=== PATIENT | male | born 1950 | race Caucasian/White ===

== ENCOUNTER → 2019-04-27 | Outpatient (CLI) | payer OTHER ==
--- NOTE | 2019-04-27 13:45 | NM ---
EXAMINATION TYPE: NM bone scan whole body DATE OF EXAM: 04/27/2019 COMPARISON: NONE HISTORY: Abnormal findings R93.89 per order. Right hip pain for 7 months per patient. Delayed whole-body scanning was performed following the injection of 24.7 mCi Tc 99m MDP. Images acq uired 3 hours post injection. FINDINGS: No suspicious increased radiotracer uptake to suggest metastatic disease to the bone or other suspici ous abnormality. No suspicious focal increased uptake at level of right hip. Degenerative change bilateral knees is present. Focal increased uptake right foot felt to correspond to degenerative change related to bunion or first metatarsophalangeal joint. Correlate clinically. IMPRESSION: As above.
== END | disposition home or self-care (01) ==
LOC: RADNMMAIN 09:38
DX: M17.0 Bilateral primary osteoarthritis of knee (principal)
CPT/HCPCS: 78306; A9503

== ENCOUNTER → 2019-12-30 | Outpatient (CLI) | payer OTHER ==
[2019-12-30 20:44] LABS: Prolactin 6.4 ng/mL (2.1-17.7); T4, Free (Free Thyroxine) 1.1 ng/dL (0.80-1.80)
[2019-12-31 02:52] LABS: ACTH 15.6 pg/mL (0.00-45.99)
== END | disposition home or self-care (01) ==
LOC: LABWHC1 11:38
PROVIDERS: ATTEND Internal Medicine Endocrinology, Diabetes & Metabolism
DX: D35.2 Benign neoplasm of pituitary gland (principal)
CPT/HCPCS: 36415; 82024; 82533; 84146; 84305; 84403; 84439; 84443; 84480

== ENCOUNTER → 2021-03-05 | Outpatient (CLI) | payer OTHER ==
[2021-03-05 20:49] LABS: HCT 47.5 % (39.6-50.0); HGB 15.6 g/dL (13.0-17.0); MCH 29.2 pg (27.0-32.0); MCHC 32.8 g/dL (32.0-37.0); Mean Platelet Volume 11.2 fL (9.5-12.2); Platelet Count 226 X 10*3/uL (140-440); RBC 5.34 X 10*6/uL (4.40-5.60); RDW 13.3 % (11.5-14.5); WBC 7.39 X 10*3/uL (4.50-10.00)
[2021-03-06 02:04] LABS: Prolactin 12.5 ng/mL (2.1-17.7)
== END | disposition home or self-care (01) ==
LOC: LABWHC1 14:51
PROVIDERS: ATTEND Internal Medicine Endocrinology, Diabetes & Metabolism
DX: D35.2 Benign neoplasm of pituitary gland (principal); E29.1 Testicular hypofunction
CPT/HCPCS: 36415; 84146; 84153; 84403; 85027

== ENCOUNTER 2021-05-03 09:27 | Emergency (ER) | payer OTHER ==
[2021-05-03] MEDS ORDERED: LIDOCAINE 1% INJ 10MG/ML (20 ML MDV) SQ ONE (10:53)
--- NOTE | 2021-05-03 11:01 | ED ---
General Adult HPI - General Chief complaint: Wound/Laceration Stated complaint: Finger injury, laceration Time Seen by Provider: 05/03/21 10:49 Source: patient Mode of arrival: ambulatory Limitations: no limitations - History of Present Illness Initial comments: Dictation was produced using [employer] dictation software. please excuse any grammatical, word or spelling errors. Chief Complaint: 70-year-old male presents with left second digit injury History of Present Illness: Patient is 70-year-old male who presents to the emergency department for left second digit injury. Patient states that around 8:30 AM he was using his table saw. A piece of wood kicked back and struck him on the distal portion of the left second digit. He noticed some bleeding. He states that it appears that the nail came off of the finger. Patient has past medical history of hypertension and dyslipidemia. He takes medications for this. Denies any numbness and paresthesias to the finger. Patient states that his last tetanus was approximately 10 years ago. Patient has no other complaints. He has pain to the digit. The ROS documented in this emergency department record has been reviewed and confirmed by me. Those systems with pertinent positive or negative responses have been documented in the HPI. All other systems are other negative and/or noncontributory. PHYSICAL EXAM: General Impression: Alert and oriented x3, not in acute distress HEENT: Normocephalic atraumatic, extra-ocular movements intact, pupils equal and reactive to light bilaterally, mucous membranes moist. Chest: Able to complete full sentences, no retractions, no tachypnea Neurological: CN II-XII grossly intact, no focal motor or sensory deficits noted Psych: Normal affect and mood Left hand: There appears to be a nail avulsion injury with bleeding arising from the lateral portion of the nailbed and under the nailbed. There does appear to be 1 cm laceration at the distal portion of the fingertip. There is some ecchymoses under the nail bed. Mild bleeding. ED course: 70-year-old male presents to the emergency department for left second digit injury vital signs upon arrival are within acceptable limits. Spoke with hand specialist who recommends removing the nail, inspecting and repairing the nail bed and trying to place the injured fragment back into the skin to follow-up with hand specialist. Nailbed was removed. He did have a complex nailbed laceration. Fractured distal fragment was placed into the laceration laceration of the nailbed was repaired using 4-0 nylon. Patient given a dose of Keflex. He started getting diaphoretic during the procedure. Patient observed in emergency department for several minutes after the diaphoretic episode. Patient given outpatient follow- up with hand surgeon. He states that he may [facility] Patient place and bandaged. Patient given prescription for Kef lavell. - Related Data Home Medications Medication Instructions Recorded Confirmed Cetirizine HCl [Zyrtec] 10 mg PO DAILY 12/13/15 12/13/15 Metoprolol Tartrate [Lopressor] 25 mg PO BID 12/13/15 12/13/15 Rosuvastatin Calcium [Crestor] 20 mg PO DAILY 12/13/15 12/13/15 Previous Rx's Medication Instructions Recorded Cephalexin [Keflex] 500 mg PO Q6HR 5 Days #20 cap 05/03/21 Allergies Allergy/AdvReac Type Severity Reaction Status Date / Time aspirin Allergy Swelling Verified 05/03/21 10:48 peanut Allergy Unknown Verified 05/03/21 10:48 Review of Systems ROS Statement: Those systems with pertinent positive or pertinent negative responses have been documented in the HPI. ROS Other: All systems not noted in ROS Statement are negative. Past Medical History Past Medical History: Hyperlipidemia, Hypertension History of Any Multi-Drug Resistant Organisms: None Reported Past Surgical History: Heart Catheterization With Stent Additional Past Surgical History / Comment(s): Steel plate in the left leg. Past Anesthesia/Blood Transfusion Reactions: No Reported Reaction Date of Last Stent Placement:: 2007 Past Psychological History: No Psychological Hx Reported Smoking Status: Never smoker Past Alcohol Use History: None Reported Past Drug Use History: None Reported - Past Family History Father Family Medical History: Diabetes Mellitus Mother Family Medical History: Cancer, Diabetes Mellitus Sister(s) Family Medical History: Myocardial Infarction ([place]) General Exam Limitations: no limitations Course Vital Signs 05/03/21 10:42 Temperature 97.8 F Pulse Rate 66 Respiratory 18 Rate Blood Pressure 190/79 O2 Sat by Pulse 94 L Oximetry Procedures - Laceration Laceration #1 Consent Obtained: verbal consent Indication: laceration Site: hand, other (complex nailbed laceration) Size (cm): 3 Description: linear Depth: simple, single layer, [id number] Anesthetic Used: lidocaine 1% Anesthesia Technique: local infiltration, nerve block Pre-repair: wound explored, irrigated extensively Type of Sutures: nylon Size of Sutures: 4-0 Technique: simple, interrupted Complications: pain Patient Tolerated Procedure: well Disposition Clinical Impression: Nailbed laceration, finger Disposition: HOME SELF-CARE Condition: Fair Instructions (If sedation given, give patient instructions): Finger Laceration (ED) Additional Instructions: It is important he follow up with hand specialist as soon as possible. You're given referral to Dr. Levy who is our local hand specialist however it is acceptable. Follow-up with a hand specialist through [facility]. Prescriptions: Cephalexin [Keflex] 500 mg PO Q6HR 5 Days #20 cap Is patient prescribed a controlled substance at d/c from ED?: No Referrals: [facility] [Primary Care Provider] - 1-2 days Domenica Borrego DO [Doctor of Osteopathic Medicine] - 1-2 days
--- NOTE | 2021-05-03 11:13 | XR ---
EXAMINATION TYPE: XR finger LT DATE OF EXAM: 05/03/2021 COMPARISON: NONE HISTORY: Pain after saw injury. TECHNIQUE: 3 views left second finger. FINDINGS: Overlying gauze and/or bandage material is seen There is open soft tissue and osseous commi nuted fracture deformity through the distal one third of the second distal phalanx with few small oss ific fragments including ovoid 8 mm displaced bony fragment. Moderate narrowing of the second DIP golden nt. There is 1.7 mm linear soft tissue foreign body in the deep aspect palmar surface at level of the distal diaphysis of the second middle phalanx noted. IMPRESSION: As above.
[2021-05-03] MEDS ORDERED: TOPICAL SKIN ADHESIVE 1 EACH AMP TOPICAL ONE (12:54)
[2021-05-03] MEDS ORDERED: CEPHALEXIN 500 MG CAP PO STA (13:18)
[2021-05-03 13:45] VITALS: BP 178/80; PULSE 62; RESP 16; TEMP 98.1
== END 2021-05-03 13:44 | disposition home or self-care (01) ==
LOC: EC 09:27
DX: S61.311A Laceration without foreign body of left index finger with damage to nail, initial encounter (principal); I10 Essential (primary) hypertension; E78.5 Hyperlipidemia, unspecified; Z83.3 Family history of diabetes mellitus; Z82.49 Family history of ischemic heart disease and other diseases of the circulatory system; W27.0XXA Contact with workbench tool, initial encounter; Z79.899 Other long term (current) drug therapy
CPT/HCPCS: 73140; 12042; 99283; J2001

== ENCOUNTER → 2021-05-31 | Outpatient (CLI) | payer OTHER ==
[2021-06-01 03:47] LABS: Prolactin 14.1 ng/mL (2.100-17.700); T4, Free (Free Thyroxine) 1.11 ng/dL (0.800-1.800)
[2021-06-01 03:56] LABS: Thyroid Peroxidase Antibodies <9.0 U/mL (0.0-33.0)
== END | disposition home or self-care (01) ==
LOC: LABWHC1 15:17
PROVIDERS: ATTEND Internal Medicine Endocrinology, Diabetes & Metabolism
DX: D35.2 Benign neoplasm of pituitary gland (principal)
CPT/HCPCS: 36415; 84146; 84439; 84443; 84480; 86376

== ENCOUNTER → 2021-11-05 | Outpatient (CLI) | payer OTHER ==
[2021-11-05 18:26] LABS: HCT 50.4 % (39.6-50.0); HGB 16.2 g/dL (13.0-17.0); MCH 28.8 pg (27.0-32.0); MCHC 32.1 g/dL (32.0-37.0); MCV 89.5 fL (80.0-97.0); Mean Platelet Volume 10.8 fL (9.5-12.2); NRBC Per 100 WBC 0 /100 WBCS (0.0-0.0); Platelet Count 207 X 10*3/uL (140-440); RBC 5.63 X 10*6/uL (4.40-5.60); RDW 13.3 % (11.5-14.5); WBC 9.34 X 10*3/uL (4.50-10.00)
[2021-11-05 18:46] LABS: Prolactin 8.8 ng/mL (2.100-17.700); Prostate Specific Antigen 2.4 ng/mL (0.00-6.50)
== END | disposition home or self-care (01) ==
LOC: LABWHC1 11:13
PROVIDERS: ATTEND Internal Medicine Endocrinology, Diabetes & Metabolism
DX: E29.1 Testicular hypofunction (principal); D35.2 Benign neoplasm of pituitary gland
CPT/HCPCS: 36415; 82024; 82533; 84146; 84153; 84403; 85027

== ENCOUNTER → 2023-12-09 | Outpatient (CLI) | payer OTHER ==
--- NOTE | 2023-12-13 22:16 | MR ---
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 CONTRAST: Performed utilizing 11 mL intravenous Gadavist gadolinium contrast. TECHNIQUE: Multiplanar, multiecho imaging on a 3.0 Delicia magnet is performed through the brain. Atte ntion is paid to the internal auditory canals with thin section imaging. Postcontrast imaging is per formed through the internal auditory canals. FINDINGS:Craniovertebral junction is normal. The pituitary is normal. Diffusion-weighted imaging is performed. No suspicious hyperintensity is present to suggest an acute intracranial infarct or acute ischemic area. Signal within the brain has scattered areas of hyperintensity which are non-specific but could be rel ated to chronic microvascular ischemic changes. Differential diagnosis includes multiple sclerosis, migraine headaches, vasculitis, and Lyme disease. Thin section imaging is performed through the internal auditory canals and cerebellar pontine angles. No cerebellar pontine angle masses are evident. The right internal auditory canal appears normal w ithout expansion or erosion. Left internal auditory canal is poorly visualized and may be postsurgica l. A single nerve root entry matter is identified. More typical dual cranial nerves are on the right. Postcontrast imaging was performed. No suspicious enhancement is evident within the internal audito ry canals or the included portions of the brain. No recurrent cerebellar pontine angle masses are in tracanalicular mass is identified. IMPRESSION: 1. No suspicious changes to suggest recurrent schwannoma. 2. Multiple scattered punctate deep white matter changes be compatible with chronic white matter isch emic-type changes.
== END | disposition home or self-care (01) ==
LOC: RADMRIMAIN 15:39
PROVIDERS: ATTEND Family Medicine
DX: D33.3 Benign neoplasm of cranial nerves (principal)
CPT/HCPCS: 70553; A9585